=== PATIENT | female | born 1965 | race Caucasian/White ===

== ENCOUNTER 2019-12-17 19:10 | Inpatient (IN) | payer OTHER ==
[~2019-12-17] VITALS: Ht 162.6 cm; Wt 101.7 kg
[2019-12-17 19:16] VITALS: BP 115/66
[2019-12-17] MEDS ORDERED: TESSALON PERLE100 M1 PO (19:34)
[2019-12-17] MEDS ORDERED: PRINIVIL20 M1 PO (19:34)
[2019-12-17] MEDS ORDERED: PREDNISONE50 MG PO (19:50)
[2019-12-17 20:09] LABS: PO2 88.6 mmHg (80.0-100.0); pH 7.416 (7.360-7.450); sO2 96.9 % (92.0-98.0)
[2019-12-17 20:14] LABS: ABSOLUTE NEUTROPHILS 7.2 thou/uL (1.4-8.2); BASOPHILS 0.3 % (0.0-2.0); EOSINOPHILS 0.1 % (0.0-3.0); HEMATOCRIT 37.6 % (37.0-47.0); HEMOGLOBIN 12.8 gm/dL (12.0-15.0); LYMPHOCYTES 13.6 % (24.0-44.0); MCHC 34.1 g/dL (28.0-37.0); MCV 79.1 fL (80.0-100.0); MONOCYTES 9.3 % (1.0-8.0); PLATELET COUNT 228 thou/uL (150-400); POLYS 76.7 % (36.0-66.0); RBC 4.75 mil/uL (4.20-5.00); RDW 15.3 % (10.5-14.5); WBC 9.3 thou/uL (4.0-11.0)
[2019-12-17 20:18] LABS: ANION GAP 8 mmol/L (7-16); BUN 32 mg/dL (7-18); CALCIUM 8.5 mg/dL (8.5-10.1); CHLORIDE 95 mmol/L (98-107); CO2 29 mmol/L (21-32); CREATININE 2.1 mg/dL (0.6-1.0); GLUCOSE 156 mg/dL (74-106); POTASSIUM 3.5 mmol/L (3.5-5.1); SODIUM 132 mmol/L (136-145)
[2019-12-17 20:28] LABS: ALBUMIN 2.9 g/dL (3.4-5.0); DIRECT BILIRUBIN < 0.1 mg/dL (<0.1-0.2); SGOT 66 U/L (15-37); SGPT 44 U/L (30-65); TOTAL BILIRUBIN 0.4 mg/dL (0.2-1.0); TOTAL PROTEIN 8.1 g/dL (6.4-8.2); TROPONIN-I 0.06 ng/mL (<0.06)
[2019-12-17 22:19] VITALS: BP 115/65
[2019-12-18] VITALS (11 sets, daily range): BP systolic 100–127; BP diastolic 59–74
[2019-12-18 01:26] LABS: URINE BILIRUBIN NEGATIVE (Negative); URINE BLOOD NEGATIVE (Negative); URINE CLARITY CLEAR; URINE COLOR YELLOW; URINE GLUCOSE-RANDOM* NEGATIVE (Negative); URINE KETONES NEGATIVE (Negative); URINE LEUKOCYTES-REFLEX NEGATIVE (Negative); URINE NITRITE-REFLEX NEGATIVE (Negative); URINE PROTEIN (DIPSTICK) NEGATIVE (Negative); URINE SPECIFIC GRAVITY 1.015 (1.005-1.035); URINE UROBILINOGEN 0.2 E.U./dl (0.2-1.0)
[2019-12-18 01:47] LABS: HEMATOCRIT 36.5 % (37.0-47.0); HEMOGLOBIN 12.5 gm/dL (12.0-15.0); MCH 26.8 pg (26.0-34.0); MCHC 34.3 g/dL (28.0-37.0); MCV 78.2 fL (80.0-100.0); RBC 4.67 mil/uL (4.20-5.00); RDW 15.1 % (10.5-14.5); WBC 9.2 thou/uL (4.0-11.0)
[2019-12-18 01:56] LABS: CALCIUM 8.3 mg/dL (8.5-10.1); CREATININE 1.5 mg/dL (0.6-1.0); POTASSIUM 3.5 mmol/L (3.5-5.1)
--- NOTE | 2019-12-18 02:12 | NUR ---
ASSESSMENT: PT ARRIVED TO ROOM 237 AT 2300 COMING FROM ED. PT WAS ADMITTED WITH SOB AND POSITIVE COVID-19. PT IS ALERT AND ORIENT TIMES FOUR. UP WITH SBA TO BSC. C/O NON-CARDIAC CHEST PAIN THAT IS ASSOCIATED WITH COUGHING. PT HAS A LOW GRADE TEMP 99.1, RR 33 ON 9 LITERS OF HI-FLOW NC. DENIES NAUSEA. UA SENT, MRSA PCR SENT, PENDING RESULTS. PT WEARS BRIEFS R/T STRESS INCONT AND COUGHING. PT HAS NON-PRODUCTIVE GOOD COUGH. PT COUGHS WITH ACTIVITY AND REPOSITIONING. DOES RECOVER SLOWLY. PT IS PLEASANT, COOPERATIVE AND CALM. SR PER MONITOR. COVID RETEST PER SUPERVISOR PAPER TESTING Golden WRIGHT. WILL BE TAKEN THIS AM TO SEND TO LAB. SLOW PROGRESS TOWARDS DC GOALS, WILL CONTINUE TO MONITOR.
--- NOTE | 2019-12-18 07:29 | EKG ---
[facility] [place] [address] ELECTROCARDIOGRAM REPORT Name: IAN NOGUEIRA Room #: 237- ADM IN M.R.#: [id number] Admission: 12/17/19 Attend Phys: Iain Castro MD Discharge: Date of : 63 Report #: [id number] THIS REPORT FOR: cc: FAM - Family physician unknown FAM - Family physician unknown Sohan Huerta MD [facility] THIS REPORT FOR: //name// [facility] ED Test Date: 2019-12-17 Test Time: 20:01:44 Pat Name: IAN NOGUEIRA Department: Room: [facility] Gender: F Yard Associate: COMPA : 1965 Requested By: Flavia Curry Order Number: [id number] MD: Sohan Huerta Measurements Intervals [place] Rate: 88 P: 41 W[place]: 151 QRS: 14 QRSD: 93 T: 70 QT: 375 QTc: 454 Interpretive Statements Sinus rhythm Normal tracing No previous ECG available for comparison Electronically Signed On 12-18-2019 7:28:29 CDT by Sohan Huerta [email or web address] <ELECTRONICALLY SIGNED> By: Sohan Huerta MD, FAC [id number] 00 00 Sohan Huerta MD, [facility] /EPI
--- NOTE | 2019-12-18 10:20 | NUR ---
chart review. unable to visit with pt via phone call or in person rt covid r/o pending and high flow o2 per requiring. cm visited with her daughter arden [phone]. intro to cm and dcp. daughter reported " we live in house, with daughter, normally independent. went to [facility] on and was positive for covid, came home and started 14 days of quarantine. she drives, manage own medication. her primary dr is at [facility]. 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 note in chart o2 from 3-12L/nc. will cont following as needed for dc needs.
--- NOTE | 2019-12-18 10:30 | NUR ---
DAUGHTER, MYRIAM INQUIRED REGARDING PT STATUS. UPDATED IN DETAIL. PT IN CHAIR WITH SAO2 IN UPPER 90'S, RR-18-22, TAKING DEEP BREATHS AND COUGHING EVERY 15 MINUTES. DRY NONPRODUCTIVE COUGH. RESP EVEN AND UNLABORED. SLIGHT PROGRESS. DR. TAVERAS PRESENT THIS AM.
--- NOTE | 2019-12-18 11:10 | NUR ---
LAB CALLED WITH COVID 19 POSITIVE RESULTS. PT TO REMAIN IN ENHANCED PRECAUTIONS, STILL EXHIBITING SYMPTOMS. MAYRA BROOKS RN INFECTION CONTROL NOTIFIED.
--- NOTE | 2019-12-18 17:00 | NUR ---
DISCUSSED BENEFITS OF "PRONING" WITH PT. AGREEDED AND WITH MINIMAL ASSISTANCE PLACED IN PRONE POSITION AT 1700. PLACED MEPELIX ON CHEEK FOR PRESSURE SORE PREVENTION. WELL TOLERATED.
--- NOTE | 2019-12-18 17:01 | NUR ---
CORRECTION 1700 NOTE: PT PLACED IN PRONE POSITION AT "1500".
[2019-12-19] VITALS (16 sets, daily range): BP systolic 92–129; BP diastolic 53–72
[2019-12-19 02:06] LABS: GLYCOHEMOGLOBIN (HGB A1C) 6.5 % (4.8-5.6)
[2019-12-19 05:35] LABS: ABSOLUTE NEUTROPHILS 4.7 thou/uL (1.4-8.2); BASOPHILS 0.2 % (0.0-2.0); HEMATOCRIT 32.6 % (37.0-47.0); HEMOGLOBIN 11.1 gm/dL (12.0-15.0); LYMPHOCYTES 15.8 % (24.0-44.0); MCH 26.9 pg (26.0-34.0); MCHC 34.1 g/dL (28.0-37.0); MCV 78.9 fL (80.0-100.0); PLATELET COUNT 234 thou/uL (150-400); RBC 4.13 mil/uL (4.20-5.00); RDW 15.2 % (10.5-14.5); WBC 6.4 thou/uL (4.0-11.0)
[2019-12-19 05:48] LABS: PROTIME 10.4 Seconds (9.3-11.4)
[2019-12-19 05:53] LABS: FIBRINOGEN 469.2 mg/dL (210-360)
[2019-12-19 06:07] LABS: ALBUMIN 2.3 g/dL (3.4-5.0); CALCIUM 8.1 mg/dL (8.5-10.1); POTASSIUM 3.6 mmol/L (3.5-5.1); TOTAL BILIRUBIN 0.3 mg/dL (0.2-1.0)
--- NOTE | 2019-12-19 07:44 | NUR ---
Progressing slowly toward goals. Pt not SOA at rest, but does drop O2 sat into mid 80's with any activity. O2 titrated from 9 L HFC to 10 L HFC this a.m. when she got up to sit in chair at 0600. Sat was 88% but now 93-95%. Pt c/o of non-cardiac chest pain x1. Fentanyl given with adequate relief obtained. Pt able to sleep well and did not drop O2 sat. Monitor sinus valdemar, rate 43-58, when sound asleep; sinus rhythm 60-80 when awake. No fever overnight, temp max 98.7 F orally.
--- NOTE | 2019-12-19 10:50 | NUR ---
returned call to Renate, daughter. updated on pt status. per pt request informed Renate that her mother's cell phone is malfunctioning. Renate stated she would machine operator hop picker the cell phone and bring a another phone for her mother. pt in chair, slowly consuming breakfast.
--- NOTE | 2019-12-19 11:40 | NUR ---
discussed during los, covid positive. no plan dc today.
--- NOTE | 2019-12-19 14:22 | NUR ---
VASCULAR ACCESS CONSULTED FOR PICC PLACEMENT. PT'S LABS,MEDS,HISTORY,ORDER AND CONSENT VERIFIED. DISCUSSED BENEFITS AND RISK OF PICC, INCREASED INCIDENCE OF BL CLOT WITH + COVID. VERBALIZED UNDERSTANDING. VICKIE BRACHIAL WAS WIDELY PATENT WITH USG. 4FR DL POWER PICC TRIMMED TO 38CM INSERTED TO 1CM EXTERNAL. PT TOLERATED WELL. STST CXR ORDERED
--- NOTE | 2019-12-19 15:03 | NUR ---
CXR CONFIRMED PICC IN SVC. PICC RELEASED FOR IMMEDIATE USE PER PROTOCOL TO CHARLOTTE GARDINER
--- NOTE | 2019-12-19 16:16 | NUR ---
SW received call from WEDDING DECORATOR to speak with pt regarding financial assistance and discharge plan. SW spoke with pt via phone in her room ([phone]). Pt is in Enhanced Isolation due to being positive for COVID-19. Pt on O2. Pt states she has been staying with her dtr, Renate. Pt is unsure of her long-term living arrangements, as she was supposed to move out of her current location as of 11/26. Pt states she has stayed at an Extended Stay recently, but has been staying with her dtr while being in quarantine. Pt requested SW contact her dtr, to notify them that the cell phones and chargers that family brought in for pt, do not work. AUDRA spoke with pt's dtr, Renate. Provided number into pt's room. Renate states pt is able to return to her home at time of discharge, and pt will be in quarantine at their house. AUDRA contacted Alissa with [employer] to assist with Medicaid application. Unsure of pt's discharge needs at this time. AUDRA is following to assist as needed with discharge planning.
[2019-12-19] MEDS ORDERED: CARVEDILOL25 MG PO (17:42)
[2019-12-19] MEDS ORDERED: GABAPENTIN800 M1 PO (17:43)
[2019-12-19] MEDS ORDERED: ELIQUIS5 MG PO (17:44)
[2019-12-19] MEDS ORDERED: FUROSEMIDE 40 M40 MG PO (17:45)
[2019-12-19] MEDS ORDERED: LIPITOR80 MG PO (17:46)
[2019-12-19] MEDS ORDERED: ZESTRIL40 MG PO (17:48)
[2019-12-19] MEDS ORDERED: GLIPIZIDE 10 MG10 MG PO (17:51)
[2019-12-19] MEDS ORDERED: LIDOCAINE 5% OINT TOP (17:54)
[2019-12-19] MEDS ORDERED: LIDOCAINE 5% TOP (18:00)
--- NOTE | 2019-12-19 20:15 | NUR ---
SLOWLY INFUSING REMDESIVIR RELATED TO L AC PERIPHERAL IV SITE. OBTAINED ORDER FROM DR. YEUNG FOR PICC PLACEMENT ABOUT 1030. CONSENT SIGNED. ABDIFATAH VO IV TEAM PLACED CENTRAL LINE, THEN PLACEMENT CONFIRMED PER CHEST XRAY, RN NOTIFIED. ANTIBIOTICS DELAYED. KINKED PERIPHERAL IV DC'D. PT HAVING CONCERNS- THE CELLS PHONES CONTINUE TO MALFUNCTION/NOT CHARGE. HOSPITAL PHONE IN ROOM FOR PT USE. PT HAS SEVERAL CONCERNS REGARDING FINANCES, IN PROCESS OF RELOCATING, CALLING HER WORK DAILY TO REPORT HERSELF SICK, WANTING TO SPEAK WITH FAMILY. TETE, CASE MANAGEMENT NOTIFIED AND SPOKE WITH PT PER HOSPITAL PHONE. PT UP IN CHAIR TWICE TODAY, EACH TIME FOR SEVERAL HOURS. AMBULATES TO TOILET WITH STANDBY ASSIST, THEN BACK TO BED WHEN CENTRAL LINE PLACED. AMBULATED TO TOILET, THEN BACK TO BED AT SHIFT CHANGE. SHE PREFERRED TO LAY PRONE. ABDIFATAH RAMOS AND I ASSISTED PT TO PRONE POSITION. WELL TOLERATED. FLAT EFFECT, STATES THAT SHE IS BREATHING BETTER TODAY.
[2019-12-20] VITALS (24 sets, daily range): BP systolic 89–138; BP diastolic 53–75
[2019-12-20 01:06] LABS: GLYCOHEMOGLOBIN (HGB A1C) 6.8 % (4.8-5.6)
--- NOTE | 2019-12-20 05:34 | NUR ---
DR. YEUNG CALLED AT 0500. PT DESAT WHEN TURNED AND CLEANED. PT UP TO 15L HIGH FLOW. PT STILL DESATING AND PLACED ON NON REBREATHER. ORDER FOR STAT CHEST XRAY GIVEN.
--- NOTE | 2019-12-20 08:55 | NUR ---
Assess due to high BMI 40.8, class III obesity. Admit +covid 19, pneumonia, hypoxia. Able to take po, but eating <50% meals past several days. On dexamethasone, BG 131-177 and A1C 6.8. No hx diabetes. Keep on regular diet for now since not eating much and will send glucerna bid until intake improves. Otherwise low nutrition risk
--- NOTE | 2019-12-20 11:15 | NUR ---
RN assumed care at 0700. At 0830, RN performed assessment, see chart for further details. VSS. PT denied pain. Is A&O x4. PT requested to self prone. Rn assisted PT with position change by guiding wires. PT has sufficient strength to turn on her own. PT had an incontinent bowel episode and was promptly cleaned up by RN. PT's oxgyen saturation is currently 100% and remains in prone position, appears to tolerate position well. High fall risk precautions in place. RN will continue to monitor.
[2019-12-20 18:06] LABS: HIV ANTIBODY Non Reactive (Non Reactive)
[2019-12-21] VITALS (60 sets, daily range): BP systolic 85–151; BP diastolic 42–90
--- NOTE | 2019-12-21 04:52 | NUR ---
Patient not making progress towards outcome goals. Extreme shortness of breath and desaturates with minimal activity. On NRBM and Hi flow cannula, sats 95-98%. Tried prone/side position. Sats gradually increases back up to upper 90's. Poor appetite. Completed transfusion of convalescent plasma without untowards reactions.
--- NOTE | 2019-12-21 06:06 | NUR ---
Dr Lozada appraised of patients progress. Anticipate possible intubation, patient educated. On BIPAP now sats 96%.
[2019-12-21 09:59] LABS: BE(vivo) -4.8 mmol/L (-2 to +3); HCO3 23.4 mmol/L (22.0-26.0); PCO2 55.9 mmHg (35.0-45.0); sO2 66.7 % (92.0-98.0)
[2019-12-21 10:01] LABS: PO2 40.9 mmHg (80.0-100.0); pH 7.239 (7.360-7.450)
--- NOTE | 2019-12-21 12:15 | NUR ---
NURSE SPOKE WITH PATIENT'S DAUGHTER KENNEY VIA PHONE REGARDING PATIENT STATUS UPDATE. INFORMED DAUGHTER THAT PATIENT WAS ADMITTED ON 12/16 WITH COVID POSITIVE PNA; SHE STRUGGLED WITH KEEPING HER OXYGEN LEVELS UP OVERNIGHT; SHE CONSENTED TO BE INTUBATED THIS MORNING. ASSURED DAUGHTER THAT PATIENT IS SEDATED AND COMFORTABLE AT THIS TIME; THAT HER VITALS AND OXYGEN LEVELS HAVE IMPROVED WHILE SHE HAS BEEN INTUBATED. PATIENT'S DAUGHTER DENIED ANY FURTHER QUESTIONS AT THIS TIME BUT WOULD LIKE CALLED WITH ANY UPDATES OR STATUS CHANGES.
--- NOTE | 2019-12-21 13:30 | NUR ---
DAUGHTER KENNEY CALLED AND UPDATED TO HER MOTHER'S CONDITION, INFORMED THAT THE PATIENT WANTED TO BE INTUBATED AND WAS ALERT AND ORIENTED AND ABLE TO GIVE CONSENT THIS AM. PATIENT WAS ONLY ABLE TO SPEAK IN SHORT 2 WORD SENTENCES PRIOR TO INTUBATION. DAUGHTER INFOMED THAT HER MOTHER WAS BEING KEPT CONFORTABLE ON MEDICATIONS FOR SEDATION AND PAIN, AND THAT SHE WAS REQUIRING A LARGE AMOUNT OF O2 FOR VENTILATION. DAUGHTER REQUESTED THAT WE INFORM HER BEFORE ANY PROCEDURES IF POSSIBLE.
[2019-12-21 15:34] LABS: HEMATOCRIT 37.1 % (37.0-47.0); HEMOGLOBIN 12.3 gm/dL (12.0-15.0); MCHC 33.1 g/dL (28.0-37.0); MCV 81.6 fL (80.0-100.0); RBC 4.54 mil/uL (4.20-5.00); RDW 15.7 % (10.5-14.5); WBC 16.7 thou/uL (4.0-11.0)
[2019-12-21 17:09] LABS: HEMATOCRIT 34.9 % (37.0-47.0); MCH 27.5 pg (26.0-34.0); MCHC 34.3 g/dL (28.0-37.0); MCV 80.2 fL (80.0-100.0); RBC 4.36 mil/uL (4.20-5.00); RDW 15.6 % (10.5-14.5); WBC 21.3 thou/uL (4.0-11.0)
[2019-12-21 17:18] LABS: INR 1.4
--- NOTE | 2019-12-21 17:28 | NUR ---
VASCULAR ACCESS CONSULTED FOR CENTRAL LINE. USING USG RIJ WAS NONCOMPRESSABLE, LEFT SIDE HAD SHADOWING IN THE IJ WITH ONLY PARTIAL COMPRESSABLITY. KELLY GARDINER NOTIFIED TO CALL DR ANDREW REGARDING FINDINGS AND CENTRAL LINE HELD.
--- NOTE | 2019-12-21 17:38 | NUR ---
CALLED DAUGHTER KENNEY TO CALL IN TO HER MOTHER'S CELL PHONE.
--- NOTE | 2019-12-21 18:17 | NUR ---
PATIENT CONSENTED TO BE INTUBATED THIS MORNING DUE TO CONTINUED HYPOXIA/SOA. INTUBATED AT 0925. RESTRAINTS PLACED 0925. OG TUBE PLACED. SEDATED ON PROPOFOL AND FENTANYL GTTS. ACCU CHECKS CHANGED TO Q6H. BG LEVELS THIS SHIFT 224 AND 216; SSI GIVEN PER ORDER. SOFT BPS; LEVOPHED GTT STARTED. NS GTT RATE DECREASED. IV ABX CONTINUED. ONE TIME LASIX GIVEN. BUTLER CONTINUED; 1300 ML OUT THIS SHIFT. BM WITH BLOOD-TINGE; INCONTINENCE. PATIENT DOES NOT TOLERATE POSITION CHANGES; DE-SATS TO 60s. TOLERATES HIGH ESTEBAN'S POSITION WITH OXYGEN SATS MAINTAINED BETWEEN 89-96%. DOUBLE PICC CONTINUED IN RIGHT ARM. ATTEMPTED PLACEMENT OF TRIPLE CENTRAL LINE; UNABLE TO DUE TO THROMBOSIS PRESENT IN BILATERAL JUGULAR VEINS AND RIGHT SUBCLAVIAN VEIN. US OF NECK AND BLES THIS SHIFT. ECHO ORDERED. DIETITIAN CONSULT FOR TUBE FEEDINGS ORDERED. LOVENOX DISCONTINUED; HEPARIN GTT STARTED. FAMILY UPDATED THROUGHOUT SHIFT BY NURSE AND PHYSICIAN. SR ON THE MONITOR; HR 70-90S.
--- NOTE | 2019-12-21 18:50 | NUR ---
Call rec'd from Dtr Renate. She states that she did receive an update earlier today but had not gotten an update for almost 2 days. During this time the pt was intubated. Renate expressed her grief at not being able to see her mom and concerned about her recovery. Emotional support provided. Renate also asked about the convolecent plasma stating that her mother did not want any blood products. ID note indicates discussion with pt and pt consent. Dtr updated and feels better knowing her mom was in agreement with this treatment. Dtr notes she and her siblings are looking to see if the pt has a dpoa document in place. She is available to help with information needed for pt to apply for [place] medicaid. Left message for the [employer] liason. Cm role reintroduced. Dc planning needs are uncertain at this time.
--- NOTE | 2019-12-21 20:00 | NUR ---
DAUGHTER UPDATED TO PLAN TO DO A CT SCAN TO R/O PULM EMBOLISM IF HER KIDNEY FUNCTION TEST WERE WITHIN NORMAL RANGE. EDUCATED ON THE DISEASE PROCESS OF TINY CLOTS FORMING AND CAUSING LARGER CLOTS AND THAT WE HAD STARTED HEPARIN TO PREVENT CLOT FORMATION. DAUGHTER VERBALIZED UNDERERSTANDING.
[2019-12-22] VITALS (86 sets, daily range): BP systolic 80–150; BP diastolic 51–91
[2019-12-22 04:59] LABS: HCO3 23.1 mmol/L (22.0-26.0); PCO2 36.6 mmHg (35.0-45.0); pH 7.418 (7.360-7.450); sO2 87.6 % (92.0-98.0)
--- NOTE | 2019-12-22 05:38 | NUR ---
2027: SEDATION VACATION FROM 100MCG OF FENTANYL AND 80MCG OF PROPOFOL. LASTED 2 MINUTES, PT FOLLOWS SOME COMMANDS, WILL ONLY WIGGLE TOES. OPENS EYES TO VOICE. 2214: TRANSPORTED PT TO RADIOLOGY FOR CTA 2247: ON OUR WAY BACK FROM RADIOLOGY, VENT WAS ALMOST OUT OF BATTERY, SO PT DESATURATED TO 44% SPO2. RT BEGAN TO MANUALLY BAG THE PT, O2 CAME UP TO 80s AT 2257; PT BACK IN ICU ROOM AND CONNECTED VENT BACK TO POWER AND TO PT. THEN PT'S 02 THEN UP TO 90s AT 2311. 0020; RN SPOKE TO PT'S DAUGHTER YAMINI ROSE; UPDATED HER ON PT STATUS, VITAL SIGNS AT THAT TIME AND RESULTS OF CTA WHICH WAS NEGATIVE. RN ALSO INFORMED DTR ABOUT A TO-DO LIST FOUNF IN PT ROOM THAT THE PT WROTE DOWN BEFORE GETTING INTUBATED. PT DTR SAID SHE WILL CALL BACK THIS AM TO GET DETAILS OF WHAT THE LIST ENTAILS. 0200; PT'S PROPOFOL TURNED DOWN TO 30MCG AND FENTANYL DOWN TO 50MCG. PT WAS ABLE TO NOD YES AND NO TO SIMPLE QUESTIONS, FOLLOW COMMANDS AND MODERATELY SQUEEZE RN'S HAND AND PUSH ON MY HAND. SMALL AMOUNT OF VAGINAL SPOTTING/BLEEDING NOTED PT IS STABLE NOW ON THE VENT. WILL CONTINUE TO CLOSELY MONITOR.
[2019-12-22 09:03] LABS: ALBUMIN 2.2 g/dL (3.4-5.0); CALCIUM 7.3 mg/dL (8.5-10.1); CREATININE 0.8 mg/dL (0.6-1.0); FIBRINOGEN 277.3 mg/dL (210-360); INR 1.2; MAGNESIUM 2.4 mg/dL (1.8-2.4); POTASSIUM 3.5 mmol/L (3.5-5.1); PROTIME 12.2 Seconds (9.3-11.4); TOTAL BILIRUBIN 1.1 mg/dL (0.2-1.0)
[2019-12-22 09:32] LABS: APTT 26.1 Seconds (24.5-32.8)
[2019-12-22 09:55] LABS: BASOPHILS 0.2 % (0.0-2.0); HEMATOCRIT 32.9 % (37.0-47.0); HEMOGLOBIN 11.1 gm/dL (12.0-15.0); LYMPHOCYTES 11.5 % (24.0-44.0); MCH 26.8 pg (26.0-34.0); MCHC 33.7 g/dL (28.0-37.0); MCV 79.7 fL (80.0-100.0); MONOCYTES 4.9 % (1.0-8.0); PLATELET COUNT 152 thou/uL (150-400); POLYS 83.4 % (36.0-66.0); RBC 4.13 mil/uL (4.20-5.00); WBC 17.9 thou/uL (4.0-11.0)
--- NOTE | 2019-12-22 10:11 | NUR ---
Nutrition: Tube feeds to start. REC Vital HP to reach 45 mL/hr with current propofol rate.
[2019-12-22] MEDS ORDERED: NO CURRENT MEDS (10:12)
[2019-12-22 10:53] LABS: D-DIMER ND ug/mLFEU (0.19-0.50)
--- NOTE | 2019-12-22 11:33 | NUR ---
Visited with daughters Renate Grider and Lisa Viramontes along with Dr. Mathews on 12/21/19 to discuss questions that they had about patient's care. Dr. Mathews explained to them the currect course of action including the use of convalescent plasma. He stated to them that if they have any other questions, please contact him and let him know. I then spoke with them about who in family will be the personal lines insurance advisor for staff to share information with, gain consents, etc. Renate stated that she would be that person. Gave a cell phone of [phone]. Shared information with nursing staff and Twisting Machine Operator. Later followed up with Renate about the possibility of I-Pad access for video messaging. Left VN and asked for an updated number to utilize this technology option.
--- NOTE | 2019-12-22 14:04 | EKG ---
[facility] [place] [address] ELECTROCARDIOGRAM REPORT Name: IAN NOGUEIRA Room #: 237- ADM IN M.R.#: [id number] Admission: 12/17/19 Attend Phys: Iain Castro MD Discharge: Date of : 63 Report #: [id number] THIS REPORT FOR: cc: FAM - Family physician unknown FAM - Family physician unknown Vickey Smiley MD ~ THIS REPORT FOR: //name// [facility] Test Date: 2019-12-21 Test Time: 20:03:49 Pat Name: IAN NOGUEIRA Department: Room: [facility] Gender: F Residue Furnace Operator: Sabine THOMPSON : 1965 Requested By: Buster Mathews Order Number: [id number] MD: Vickey Smiley Measurements Intervals [place] Rate: 91 P: 39 TX: 161 QRS: 29 QRSD: 91 T: 44 QT: 389 QTc: 479 Interpretive Statements Sinus rhythm Nonspecific T abnormalities, anterior leads Baseline wander in lead(s) II,V1 Compared to ECG 12/17/2019 20:01:44 T-wave abnormality now present Electronically Signed On 12-22-2019 14:04:20 CDT by Vickey Smiley [email or web address] <ELECTRONICALLY SIGNED> By: Vickey Smiley MD 12/22/19 1404 02 02 Vickey Smiley MD /EPI
--- NOTE | 2019-12-22 15:30 | NUR ---
1515- Patient was pronated and will be in this position for 6 hours, per Dr. Mathews. Three RNs with RT used sheet exchange method to smoothly pronate patient. Patient appeared to tolerate pronation transfer well. 1530- Patient moved to 238 with all belongings, 2 cells phones 2 cell phone chargers (1 pink and 1 black), red glasses, red shirt, randle pants, and white socks. Nurse to continue to monitor patient status.
--- NOTE | 2019-12-22 15:50 | NUR ---
4707- Nurse talked with Renate and updated her on plan of care and current status of her mom. Her questions were answered. The list of information that the patient had written out was verbally given to Renate. Renate expressed that she would like to facetime her mom. The number to call Renate on for facetime is [phone]. Renate is hoping to get to interact with her tonight during the sedation vacation. Daysmift RN will pass this on in report. Nurse talked with Renate and expressed that she will be prone position until around 2115 tonight. Then nurse could perform the sedation vacation. Nurse also let Renate know about the room change and the reasonings for this. No further questions were asked and the phone call was ended.
--- NOTE | 2019-12-22 16:26 | NUR ---
Pt remains intubated in the ICU. Case discussed with the care team and the [employer] liason. [place] medicaid has now changed rules for covid pt applications;however the pt tested postive at [facility] more than 12 days ago prior to the new rule change. [employer] will reveiw the rules and determine if they can try to take an application once the pt is able to participate. [employer] to check with [employer] as well to see if they have submitted already as the pt has been at [facility] ICU. The system does not show that an larry has been submitted. Will follow.
--- NOTE | 2019-12-22 18:24 | NUR ---
5698- Nurse talked with Renate who expressed the previous number for the [employer] is not working. She wants us to call with [employer] on a different number. This number is [phone]. This will be informed to next oncoming shift.
--- NOTE | 2019-12-22 18:25 | NUR ---
Patient maintaining status at this time. She is prone. Requiring levophed for blood pressure support. Heparin gtt protocol followed.
[2019-12-23] VITALS (48 sets, daily range): BP systolic 90–139; BP diastolic 50–89
[2019-12-23 05:43] LABS: HEMATOCRIT 31.2 % (37.0-47.0); HEMOGLOBIN 10.4 gm/dL (12.0-15.0); MCH 26.7 pg (26.0-34.0); MCHC 33.4 g/dL (28.0-37.0); MCV 79.8 fL (80.0-100.0); RBC 3.91 mil/uL (4.20-5.00); RDW 15.4 % (10.5-14.5)
[2019-12-23 05:57] LABS: CALCIUM 7.7 mg/dL (8.5-10.1); CREATININE 0.8 mg/dL (0.6-1.0); MAGNESIUM 2.8 mg/dL (1.8-2.4); POTASSIUM 3.2 mmol/L (3.5-5.1)
--- NOTE | 2019-12-23 07:28 | NUR ---
PATIENT ON LIGHT SEDATION. ABLE TO OPEN EYES AND TRACK DURING SEDATION VACATION. PATIENT FACETIMED WITH FAMILLY THROUGHOUT THE NIGHT [phone], QUESTIONS ANSWERED. DAUGHTER (VIVIANE) WOULD LIKE TO BE CALLED BY SENIOR PRINCIPAL ARCHITECT TO DISCUSSED PLAN OF CARE. DAUGHTER EXPRESSED CONCERNS ABOUT PATIENT BEING ON VENTILATOR AND WHAT ARE HER CHANCES IF IT IS REMOVED. ON 100% FIO2, PATIENT PRONED FROM [id number], POST CHEST X-RAY SHOWED SIGNIFICANT IMPROVEMENT. LEVOFED WEANED TO 2MCG, MAP REMAINS ABOVE 60. BUTLER PATENT WITH DARK YELLOW URINE. POTASSIUM REPACED THIS MORNING. TUBE FEEDING STARTED THROUUGHOUT THE NIGHT, PATIENT TOLERATING WELL. RESIDUAL CHECK LESS THAN 50 ML. SPOKE WITH DAUGHTER THIS MORNING AT 0700 AND GAVE UPDATE OF PATIENT'S NIGHT. PATIENT PROGRESSING TOWARDS GOALS, NO SIGN OF ACUTE DISTRESS NOTED AT THIS TIME. WILL CONTINUE TO MONITOR.
[2019-12-23 11:46] LABS: BE(vivo) 2.5 mmol/L (-2 to +3); HCO3 28.4 mmol/L (22.0-26.0); PO2 103.5 mmHg (80.0-100.0); pH 7.372 (7.360-7.450); sO2 97.5 % (92.0-98.0)
--- NOTE | 2019-12-23 18:20 | NUR ---
FIO2 DOWN TO 80%. PRONED AT 1600. FACE TIME WITH FAMILY AT 1400 FOR 20 MINUTES. SEDATION VACATION DURING FACETIME, PT AWAKE, MOVING EXTREMITIES. DID NOT FOLLOW COMMANDS. LEVOPHED OFF TODAY AT 1100. VSS..
[2019-12-24] VITALS (27 sets, daily range): BP systolic 88–151; BP diastolic 42–87
[2019-12-24 05:39] LABS: HEMATOCRIT 29.2 % (37.0-47.0); HEMOGLOBIN 9.9 gm/dL (12.0-15.0); MCH 27.1 pg (26.0-34.0); MCV 79.6 fL (80.0-100.0); RBC 3.67 mil/uL (4.20-5.00); RDW 15.7 % (10.5-14.5); WBC 14.4 thou/uL (4.0-11.0)
[2019-12-24 05:56] LABS: CREATININE 0.9 mg/dL (0.6-1.0); MAGNESIUM 2.7 mg/dL (1.8-2.4); POTASSIUM 3.6 mmol/L (3.5-5.1)
--- NOTE | 2019-12-24 06:00 | NUR ---
REMAINS INTUBATED AND SEDATED WITH PROPOFOL AND FENTANYL GTTS. FIO2 REMAINS 80 % LUNGS COARSE BILAT. BATHED. 1600 CC UO THIS SHIFT. PT IN PRONE POSITION FOR 6 HRS LAST EVENING SINUS RHYTHM. PROGRESSING TOWARD GOALS. WILL CONT TO MONITOR
[2019-12-24 06:08] LABS: D-DIMER 10.3 ug/mLFEU (0.19-0.50)
[2019-12-24 09:06] LABS: APTT 71.1 Seconds (24.5-32.8)
[2019-12-24 10:35] LABS: BE(vivo) 5.8 mmol/L (-2 to +3); HCO3 32.3 mmol/L (22.0-26.0); PCO2 58.3 mmHg (35.0-45.0); PO2 93.3 mmHg (80.0-100.0); pH 7.362 (7.360-7.450); sO2 96.7 % (92.0-98.0)
--- NOTE | 2019-12-24 16:19 | NUR ---
NO CHANGES IN VENT SETTINGS TODAY. MINIMAL SECRETIONS PER ETT. PRONED AT 1530. SPOKE WITH DAUGHTER ILIANA AT 0930 AND UPDATED HER ON PT CONDITION AND PLAN OF CARE. ADEQUATE URINE OUTPUT. AFEBRILE, BP STABLE OFF OF LEVOPHED.
[2019-12-25] VITALS (25 sets, daily range): BP systolic 91–122; BP diastolic 48–72
[2019-12-25 05:40] LABS: HEMATOCRIT 26.9 % (37.0-47.0); HEMOGLOBIN 9.1 gm/dL (12.0-15.0); MCH 26.8 pg (26.0-34.0); MCHC 33.7 g/dL (28.0-37.0); MCV 79.7 fL (80.0-100.0); RBC 3.37 mil/uL (4.20-5.00); RDW 15.8 % (10.5-14.5); WBC 12.3 thou/uL (4.0-11.0)
[2019-12-25 05:57] LABS: CALCIUM 8.2 mg/dL (8.5-10.1); CREATININE 0.9 mg/dL (0.6-1.0); MAGNESIUM 2.7 mg/dL (1.8-2.4); POTASSIUM 3.9 mmol/L (3.5-5.1)
--- NOTE | 2019-12-25 15:58 | NUR ---
SW reviewed chart and spoke with attending physician. Pt remains intubated and sedated in ICU. Pt is in Enhanced Isolation due to COVID-19. TAXATION AGENT consulted today. [employer] to rescreen pt to determine if she will qualify for [place]-Medicaid. AUDRA is following to assist as needed with discharge planning.
--- NOTE | 2019-12-25 18:36 | NUR ---
FIO2 DOWN TO .50%. LARGE AMOUNT OF VAGINAL BLEEDING NOTED IN AM. MD NOTIFIED AND CT OF ABDOMEN/PELVIS ORDERED. ALLIGATOR HUNTER CONSULT AND TRANSVAGINAL U/S COMPLETED. LARGE CERVICAL MASS NOTED ON CT. DR. ANDREW SPOKE WITH DAUGHTER ABOUT PT CONDITION. HEPARIN DRIP HELD DUE TO BLEEDING. THIS NURSE SPOKE WITH DAUGHTER AND UPDATED HER ON CONDITION AND PLAN OF CARE. DAUGHTER WOULD LIKE TO HAVE VIDEO CALL TOMORROW AT 1400 WITH MOTHER.
[2019-12-26] VITALS (24 sets, daily range): BP systolic 96–169; BP diastolic 52–91
[2019-12-26 09:47] LABS: CALCIUM 7.3 mg/dL (8.5-10.1); CREATININE 0.6 mg/dL (0.6-1.0); POTASSIUM 3.9 mmol/L (3.5-5.1)
--- NOTE | 2019-12-26 09:52 | NUR ---
Patient incontient of stool. loose brown. Fecal management system inserted. Light pinkish, red vag drainage noted.
--- NOTE | 2019-12-26 14:05 | NUR ---
VIDEO CONFERENCE WITH PATIENT'S FAMILY AND PATIENT. VIA DAUGHTER, KENNEY'S PHONE. VIDEO CONFERENCE WITH MULTIPLE FAMILY MEMBERS FROM 1348 TO 1401. DAUGHTER KENNEY UPDATED TO THE PATIENT'S STATUS THAT WE HAD TURNED O2 DOWN AND SHE WAS TOLERATING IT AND NOW HAVING STOOLS.
--- NOTE | 2019-12-26 19:29 | NUR ---
PATIENT PROGRESSING SLOWLY SHE IS TOLERATING NEW VENT SETTINGS OF FIO2 OF 40% AND PEEP OF 10CM. RESP RATE IN THE 20'S AND O2 SAT 94 TO 96%. TOLERATING TUBE FEEDING. DR ANDREW UPDATED AT 1900. URINE OUTPUT OF 160 ML MYRIAM COLORED URINE AFTER LASIX. MONIOR SR TO [facility].
[2019-12-27] VITALS (24 sets, daily range): BP systolic 92–154; BP diastolic 50–81
--- NOTE | 2019-12-27 02:35 | NUR ---
ASSUMED CARE OF PATIENT AT 1900. LARGE CLOTS FROM VAGINAL AREA CLEANED SEVERAL TIMES. BUTLER SEEMS TO BE LEAKING, ADEQUATE FLUID IN BALLOON. DAUGHTER CALLED AT 0030. UPDATE GIVEN. VERBALIZED UNDERSTANDING. NOT PROGRESSING TOWARDS POC EVIDENCED BY CONTINUE BLEEDING AND CONTINUED NEED FOR VENTILATOR. WILL CONTINUE TO MONITOR.
[2019-12-27 06:19] LABS: HEMATOCRIT 28.3 % (37.0-47.0); HEMOGLOBIN 9.6 gm/dL (12.0-15.0); MCH 27.3 pg (26.0-34.0); MCHC 33.8 g/dL (28.0-37.0); MCV 80.8 fL (80.0-100.0); RBC 3.51 mil/uL (4.20-5.00); RDW 15.4 % (10.5-14.5); WBC 18.4 thou/uL (4.0-11.0)
[2019-12-27 06:38] LABS: CALCIUM 8.4 mg/dL (8.5-10.1); CREATININE 0.7 mg/dL (0.6-1.0); POTASSIUM 3.8 mmol/L (3.5-5.1)
--- NOTE | 2019-12-27 20:08 | NUR ---
PT REMAINS INTUBATED; PEEP DECREASED FROM 10 TO 6, TOLERATED FAIRLY WELL. REMAINS ON PROPOFOL AND FENTANYL GTT, FOLLOWING SIMPLE COMMANDS.
[2019-12-28] VITALS (24 sets, daily range): BP systolic 94–123; BP diastolic 47–70
[2019-12-28 04:48] LABS: HEMATOCRIT 26.5 % (37.0-47.0); HEMOGLOBIN 8.8 gm/dL (12.0-15.0); MCHC 33.3 g/dL (28.0-37.0); MCV 81.2 fL (80.0-100.0); RBC 3.26 mil/uL (4.20-5.00); RDW 15.4 % (10.5-14.5); WBC 17.2 thou/uL (4.0-11.0)
[2019-12-28 04:59] LABS: CALCIUM 8.4 mg/dL (8.5-10.1); CREATININE 0.7 mg/dL (0.6-1.0); POTASSIUM 3.6 mmol/L (3.5-5.1)
--- NOTE | 2019-12-28 05:02 | NUR ---
CARE ASSUMED AT 1900. PT SEDATED. ABLE TO OPEN EYES BUT DOES NO FOLLOW COMMANDS. SR ON THE MONITOR. PT HAS A PERIODIC COUGH THAT MAKES HER DESAT INTO LOWER 80s BUT DOES NOT SUSTAIN. FIO2 TITRATED TO 45 FROM 40. BED ON ROTATION, WITH PERIODIC REPOSITIONING. MINIMAL VAGINAL BLEEDING STILL NOTED. RECTAL TUBE AND CATHETER INTACT. SOFT BPs OVERNIGHT , OTHER MAP STABLE > 60. PT DOES NOT APPEAR TO BE IN ANY DISTRESS AT THE MOMENT. MILD FEVER OF 99.9, TYLENOL GIVEN. DAUGHTER UPDATED ABOUT PT CONDITION. TUBE FEEDING AT 45, WITH RESIDUAL OF 35. WILL CONTINUE TO MONITOR.
--- NOTE | 2019-12-28 12:15 | NUR ---
discussed during los, remains on vent, going to possible start wean trials, coivd positive. spoke with daughter ardenmayo active listing and support during visit " we appreciate the video call. we still would like doctors to updates us on who she is doing getting her off vent. keeps up updated on home pending medicaid is going and i think her insurance was active with [employer] on 12/27/2019. not received anything in mail or phone call from [employer]. thank you so much for checking when us since cant all be up there with her"/daughter arden [phone]. passed on information to bedside nurse. will cont following as needed for dc needs. no anticipated dc over the weekend.
[2019-12-28 13:45] LABS: T-SPOT.TB Negative
--- NOTE | 2019-12-28 19:15 | NUR ---
Pt sedated with Propofol/Fentanyl while on the ventilator. Pt has limited movement of arms but does not focus eyes on RN at bedside. Rhythm stable. Maintained on ventilator today with occasional suctioning required. Tolerating tube feedings. Small amt of vaginal bleeding. No contact with family. Dr Castro stated he would be calling pt's daughter to give status report. Report given to RN assuming care.
[2019-12-29] VITALS (19 sets, daily range): BP systolic 90–165; BP diastolic 50–132
[2019-12-29 06:20] LABS: CALCIUM 8.1 mg/dL (8.5-10.1); CREATININE 0.5 mg/dL (0.6-1.0); POTASSIUM 3.6 mmol/L (3.5-5.1)
--- NOTE | 2019-12-29 07:30 | NUR ---
PT FOLLOWING COMMANDS IN LOWER EXTREMIIES. SEDATION TIRATED UP PT WAS COUGHING OVER THE VENT. PT TOLERATING TUBE FEED. RESTRAINTS RENEWED. ADEQUATE URINE OUTPUT. SCANT VAGINAL BLEEDING. CHART CHECK. PLAN FOR CPAP THIS MORNING.
[2019-12-29 08:13] LABS: HCO3 29.3 mmol/L (22.0-26.0); PCO2 48.3 mmHg (35.0-45.0); pH 7.401 (7.360-7.450); sO2 93.4 % (92.0-98.0)
--- NOTE | 2019-12-29 16:49 | NUR ---
Spoke with pt daughter, gave updates on cpap trial, vital signs, medications and plan of care. Pt tolerates RASS -2, able to nod appropriately to yes/no questions. Minimal amount of vaginal bleeding throughout day, blood only visualized on personal care wipe when given stephani care. Heparin gtt restarted per Dr Ayala, no boluses are to be given, discontinued bolus per pharmacy/Jamie. Pt tolerated CPAP trial for 40mins, placed back on CMV due to increased respirations.
[2019-12-30] VITALS (24 sets, daily range): BP systolic 90–145; BP diastolic 52–84
--- NOTE | 2019-12-30 06:00 | NUR ---
REMAINS INTUBATED AND SEDATED WITH PROPOFOL AND FENTANYL GTTS 1000 CC UO THIS SHIFT. SMALL AMT DRAINAGE FROM FMS. REMAINS IN SR. WILL CONT TO MOMITOR.
[2019-12-30 07:06] LABS: ABSOLUTE NEUTROPHILS 10.3 thou/uL (1.4-8.2); BASOPHILS 0.7 % (0.0-2.0); EOSINOPHILS 1.1 % (0.0-3.0); HEMATOCRIT 25.9 % (37.0-47.0); HEMOGLOBIN 8.8 gm/dL (12.0-15.0); LYMPHOCYTES 18.8 % (24.0-44.0); MCH 27.7 pg (26.0-34.0); MCHC 34.1 g/dL (28.0-37.0); MCV 81.2 fL (80.0-100.0); MONOCYTES 9.8 % (1.0-8.0); PLATELET COUNT 159 thou/uL (150-400); POLYS 69.6 % (36.0-66.0); RBC 3.18 mil/uL (4.20-5.00); WBC 14.8 thou/uL (4.0-11.0)
[2019-12-30 07:32] LABS: ALBUMIN 2.2 g/dL (3.4-5.0); CALCIUM 8.4 mg/dL (8.5-10.1); CREATININE 0.6 mg/dL (0.6-1.0); POTASSIUM 3.6 mmol/L (3.5-5.1); TOTAL BILIRUBIN 0.5 mg/dL (0.2-1.0); TOTAL PROTEIN 6.8 g/dL (6.4-8.2)
--- NOTE | 2019-12-30 11:27 | NUR ---
ASSUMED CARE AT 0700, ASSESSMENT AND VITAL SIGNS COMPLETED PER ICU PROTOCOL. DR. TAVERAS ROUNDED THIS AM, PLAN OF CARE DISCUSSED. RN WILL CONTINUE TO MONITOR.
[2019-12-30 15:01] LABS: BE(vivo) 7.9 mmol/L (-2 to +3); HCO3 32.7 mmol/L (22.0-26.0); PCO2 47.5 mmHg (35.0-45.0); PO2 94.1 mmHg (80.0-100.0); pH 7.456 (7.360-7.450); sO2 97.4 % (92.0-98.0)
[2019-12-31] VITALS (23 sets, daily range): BP systolic 105–139; BP diastolic 57–76
[2019-12-31 05:13] LABS: HEMATOCRIT 24.8 % (37.0-47.0); HEMOGLOBIN 8.4 gm/dL (12.0-15.0); MCH 27.6 pg (26.0-34.0); MCHC 33.9 g/dL (28.0-37.0); MCV 81.3 fL (80.0-100.0); RBC 3.06 mil/uL (4.20-5.00); RDW 16.1 % (10.5-14.5); WBC 13.8 thou/uL (4.0-11.0)
[2019-12-31 05:26] LABS: CALCIUM 8.5 mg/dL (8.5-10.1); CREATININE 0.7 mg/dL (0.6-1.0); POTASSIUM 3.8 mmol/L (3.5-5.1)
[2019-12-31 16:08] LABS: pH 7.412 (7.360-7.450); sO2 96.4 % (92.0-98.0)
[2020-01-01] VITALS (24 sets, daily range): BP systolic 98–121; BP diastolic 54–78
--- NOTE | 2020-01-01 04:47 | NUR ---
2230; PT'S SHERINE SANTIAGO FOR A STATUS UPDATE. PT'S VITALS AT THE TIME WAS COMMUNICATED TO HER. SHE WANTED TO KNOW HOW PT TOLERATED THE CPAP TRIAL IN THE DAY. TOLD FAMILY THAT PT LASTED ON CPAP FOR AN HOUR. SEDATION VACATION 2009 TO 2013. PT ON FENTANYL AND PROPOFOL. PT FOLLOWS COMMANDS, MOVES EXREMITIES BUT SHE IS WEAK. GOOD U/0 WITH AVERAGE OF 100ML/HR. INTERDRY APPLID TO SKIN FOLDS. PT IS STABLE, WILL CONTINUE TO CLOSELY MONITOR.
[2020-01-01 06:38] LABS: CALCIUM 8.7 mg/dL (8.5-10.1); CREATININE 0.6 mg/dL (0.6-1.0); POTASSIUM 3.5 mmol/L (3.5-5.1)
--- NOTE | 2020-01-01 13:48 | NUR ---
discussed during los, remains on vent, possible wean trails to start. will cont following as needed for dc needs.
--- NOTE | 2020-01-01 16:57 | NUR ---
PT VENTILATED AND SEDATED. VENT SETTINGS UNCHANGED, NO WEANING OR CPAP TRIAL TODAY. SEDATION IS UNCHANGED. TUBE FEED VIA OG TUBE IS AT GOAL (45ML/HR), RESIDUALS WNL. POLYUREA. FMS IN PLACE WITH SMALL AMOUNT OF LIQUID STOOL. NO VAGINAL BLEEDING NOTED. AFEBRILE. VSS WNL FOR SHIFT. PT NEUROLOGICALLY INTACT. PT AND FAMILY HAVE BEEN UPDATED AND EDUCATED ON POC. WILL CONTINUE TO MONITOR.
[2020-01-02] VITALS (25 sets, daily range): BP systolic 93–130; BP diastolic 53–74
[2020-01-02 04:44] LABS: HEMOGLOBIN 8.2 gm/dL (12.0-15.0); MCH 27.3 pg (26.0-34.0); MCHC 34.1 g/dL (28.0-37.0); RDW 16.1 % (10.5-14.5)
[2020-01-02 05:02] LABS: CALCIUM 8.9 mg/dL (8.5-10.1); CREATININE 0.6 mg/dL (0.6-1.0); POTASSIUM 3.3 mmol/L (3.5-5.1)
--- NOTE | 2020-01-02 09:54 | NUR ---
cm visited with pt daughter arden via phone call, cm checking to see if pt has received her insurance card from her work that was supposed to be effective on 12/27/2019, sterling? " no i have not yet but i will call up to her work today and check to see where it is"/arden daughter. no concerns or question to pass on to bedside nurse. pt remains on vent, will cont following as needed for dc needs.
--- NOTE | 2020-01-02 17:04 | NUR ---
PT INTUBATED AND SEDATED. VENT SETTINGS UNCHANGED. NO CPAP/WEANING TRIAL TODAY. HEPARIN GTT STOPPED DUE TO PLATLET COUNT. HIT ANTIBODY LAB WAS ORDERED AND SENT. TUBE FEED AT GOAL WITH RESIDUALS WNL. FMS IN PLACE WITH SMALL AMOUNT OF DRAINAGE. ADEQUATE UOP. NO VAGINAL BLEEDING NOTED. FAMILY UPDATED AND EDUCATED ON POC. WILL CONTINUE TO MONITOR.
[2020-01-03] VITALS (24 sets, daily range): BP systolic 99–143; BP diastolic 54–85
--- NOTE | 2020-01-03 04:32 | NUR ---
ASSUMMED PT CARE AT THE CHANGE OF SHIFT, PT IS SEDATED, FOLLOW COMMANDS AND CAN ANSWER YES OR NO QUESTIONS BY NODDING, PT IS ON FENTANYL AND PROPOFOL, FECAL MANAGEMENT IN PLACE, BUTLER IN PLACE WITH GOOD OUTPUT, PT CONTINUES TO BE ON VENTILLATOR, 02 SATS AY 100%, VSS, RESTRAINS RENEWED AND IN PLACE, REMAINS AFEBRILE, NO ISSUES, TALKED WITH RT, WILL TRY WEAN OFF IN THE AM, WILL CONTINUE TO MONITOR
--- NOTE | 2020-01-03 07:51 | NUR ---
PT REMAINED AFEBRILE THROUGH THE SHIFT, SR ON THE MONITOR, VSS, REMAINS ON PROPOFOL AND FENTANYL GTT, REFUSED BATH, PASSED REPORT TO DAY NURSE
[2020-01-03 09:15] LABS: BE(vivo) 9.5 mmol/L (-2 to +3); HCO3 33.8 mmol/L (22.0-26.0); PCO2 44.9 mmHg (35.0-45.0); PO2 76.8 mmHg (80.0-100.0); pH 7.494 (7.360-7.450); sO2 96.2 % (92.0-98.0)
--- NOTE | 2020-01-03 09:47 | NUR ---
Will add 1 packet beneprotein in each water flush to meet pts increased protein demands
[2020-01-03 09:52] LABS: ABSOLUTE NEUTROPHILS 8.8 thou/uL (1.4-8.2); EOSINOPHILS 1.1 % (0.0-3.0); HEMATOCRIT 26.4 % (37.0-47.0); MCH 27.2 pg (26.0-34.0); MCHC 33.9 g/dL (28.0-37.0); MCV 80.2 fL (80.0-100.0); PLATELET COUNT 82 thou/uL (150-400); POLYS 77.9 % (36.0-66.0); RDW 16.2 % (10.5-14.5); WBC 11.3 thou/uL (4.0-11.0)
[2020-01-03 10:03] LABS: CALCIUM 8.9 mg/dL (8.5-10.1); CREATININE 0.6 mg/dL (0.6-1.0); POTASSIUM 3.5 mmol/L (3.5-5.1)
--- NOTE | 2020-01-03 19:15 | NUR ---
ASSUMED CARE AT SHIFT CHANGE, SEDATED AND DROWSY, FOLLOWS COMMANDS AND NODDING APPROPRIATLEY TO QUESTIONS. ASSESSMENT DOCUMETED, LOW GRADE FEVER AND MEDICATED INDICATED. KENNEY PATIENT DAUGHTER WAS UPDATED WITH PATIENT CONDITION. Q2 POSITIONED NEEDED FOR COMFORT. AND WILL CONTINUE WITH POC.
[2020-01-04] VITALS (38 sets, daily range): BP systolic 77–171; BP diastolic 41–114
[2020-01-04 05:03] LABS: ABSOLUTE NEUTROPHILS 7.4 thou/uL (1.4-8.2); BASOPHILS 0.6 % (0.0-2.0); EOSINOPHILS 2.3 % (0.0-3.0); HEMATOCRIT 26.6 % (37.0-47.0); HEMOGLOBIN 8.8 gm/dL (12.0-15.0); LYMPHOCYTES 16.9 % (24.0-44.0); MCH 26.7 pg (26.0-34.0); MONOCYTES 9.2 % (1.0-8.0); PLATELET COUNT 85 thou/uL (150-400); RBC 3.29 mil/uL (4.20-5.00); RDW 16.8 % (10.5-14.5); WBC 10.4 thou/uL (4.0-11.0)
[2020-01-04 05:10] LABS: BE(vivo) 7.9 mmol/L (-2 to +3); PCO2 43.1 mmHg (35.0-45.0); PO2 70.6 mmHg (80.0-100.0); pH 7.489 (7.360-7.450); sO2 95.3 % (92.0-98.0)
[2020-01-04 05:23] LABS: ALBUMIN 2.7 g/dL (3.4-5.0); CREATININE 0.6 mg/dL (0.6-1.0); POTASSIUM 3.3 mmol/L (3.5-5.1); TOTAL BILIRUBIN 0.6 mg/dL (0.2-1.0); TOTAL PROTEIN 7.5 g/dL (6.4-8.2)
--- NOTE | 2020-01-04 07:17 | NUR ---
PT MAKING SLOW PROGRESS TOWARDS GOALS. ON VENTILATOR OVERNIGHT NIGHT (CPAP MODE PREVIOUSLY DURING THE DAY). PT TOLERATING THE VENT, OCCASIONAL COUGHING NOTED. MINIMAL AMOUNT OF WHITISH SECRETIONS NOTED WITH SUCTIONING. FOLLOWING COMMANDS. CONTINUE TO MONITOR.
[2020-01-04 08:48] LABS: BE(vivo) 10.3 mmol/L (-2 to +3); HCO3 34.4 mmol/L (22.0-26.0); PCO2 44.5 mmHg (35.0-45.0); PO2 72.6 mmHg (80.0-100.0); pH 7.506 (7.360-7.450); sO2 95.7 % (92.0-98.0)
--- NOTE | 2020-01-04 11:30 | NUR ---
PATIENT ON CPAP THIS AM. ALERT AND ORIENTED NODDING HEAD APPROPIATELY TO QUESTIONS. MONITOR NSR, 70 TO 80'S RESP RATE 20, VSS ABG'S CALLED TO DR YEUNG. ORDERS NOTED.
--- NOTE | 2020-01-04 12:30 | NUR ---
Patient extubated to 35% face shield at 1155. At 1210 O2 dropping to 86%. Stridor noted. Randy RT at bedside fi02 increased to 60% face shield. Dr Lozada notified. Orders noted.
--- NOTE | 2020-01-04 13:21 | NUR ---
Racemic Epi respiratory treatment given and placed on BiPAp 12/6, rate of 10 and 100% FiO2. Solu Medrol and Atovan given per order. Patient remains tachypnic, less responsive after Ativan
[2020-01-04 13:52] LABS: BE(vivo) 4.4 mmol/L (-2 to +3); HCO3 39.6 mmol/L (22.0-26.0); PCO2 160.2 mmHg (35.0-45.0); PO2 247.1 mmHg (80.0-100.0); pH 7.011 (7.360-7.450)
--- NOTE | 2020-01-04 15:15 | NUR ---
PATIENT REINTUBATED AT [address] YEUNG, WITH GLIDOSCOPE. 7.0 ETT INERTED 25 CM AT THE LIP. PROPOFOL RESTARTED FOR SEDATION, OG TUBE REINSERTED AND PORTABLE CXR DONE. PATIENT COUGHING, SUCTIONED. BP DROPPING AND PROPOFOL TAPPERED.
[2020-01-04 15:45] LABS: BE(vivo) 4.5 mmol/L (-2 to +3); PO2 103.2 mmHg (80.0-100.0); pH 7.361 (7.360-7.450); sO2 97.4 % (92.0-98.0)
--- NOTE | 2020-01-04 18:45 | NUR ---
PATIENT NOT PROGESSING SHE IN REINTUBATED. RESTING QUITELY ON THE VENT, NOT COUGHING MUCH. MONITOR NSR, RIDING VENT WITH O2 STAT IN THE UPPER 90'S.
[2020-01-05] VITALS (14 sets, daily range): BP systolic 94–128; BP diastolic 59–71
[2020-01-05 05:49] LABS: HEMATOCRIT 26.1 % (37.0-47.0); HEMOGLOBIN 8.8 gm/dL (12.0-15.0); MCH 26.9 pg (26.0-34.0); MCHC 33.5 g/dL (28.0-37.0); MCV 80.2 fL (80.0-100.0); RBC 3.26 mil/uL (4.20-5.00); RDW 16.6 % (10.5-14.5); WBC 12.9 thou/uL (4.0-11.0)
[2020-01-05 06:06] LABS: CALCIUM 9.1 mg/dL (8.5-10.1); CREATININE 1.3 mg/dL (0.6-1.0); POTASSIUM 3.9 mmol/L (3.5-5.1)
--- NOTE | 2020-01-05 12:15 | NUR ---
RN JUST NOTIFIED KENNEY, DAUGHTER CALLED X 2 TO INQUIRE REGARDING PT STATUS. RN IMMEDIATELY CALLED KENNEY, APOLOGIZED FOR THE DELAYED RESPONSE. UPDATED HER ON HER MOTHER'S STATUS INCLUDING SEDATED WHILE ON VENT, ABLE TO WEAKLY FOLLOW COMMANDS WITH ALL EXTREMITIES. TOLERATING VENT AND ALLOWING HER LUNGS TO REST TODAY. ALL QUESTIONS ANSWERED TO SATISFACTION.
--- NOTE | 2020-01-05 15:30 | NUR ---
No anticipated weekend discharge. Patient extubated for short time and now reintubated. 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 [facility] following or dc planning. No health insurance noted at this time. [employer] referral in process.
[2020-01-06] VITALS (16 sets, daily range): BP systolic 97–139; BP diastolic 60–80
[2020-01-06 05:29] LABS: BE(vivo) 5.1 mmol/L (-2 to +3); HCO3 29.6 mmol/L (22.0-26.0); PO2 62.6 mmHg (80.0-100.0); pH 7.455 (7.360-7.450); sO2 92.9 % (92.0-98.0)
[2020-01-06 05:29] LABS: ABSOLUTE NEUTROPHILS 10.3 thou/uL (1.4-8.2); BASOPHILS 0.3 % (0.0-2.0); HEMATOCRIT 27.2 % (37.0-47.0); HEMOGLOBIN 8.9 gm/dL (12.0-15.0); LYMPHOCYTES 11.4 % (24.0-44.0); MCH 26.2 pg (26.0-34.0); MCHC 32.8 g/dL (28.0-37.0); MCV 79.9 fL (80.0-100.0); MONOCYTES 8.3 % (1.0-8.0); PLATELET COUNT 142 thou/uL (150-400); RBC 3.41 mil/uL (4.20-5.00); WBC 12.9 thou/uL (4.0-11.0)
[2020-01-06 05:48] LABS: ALBUMIN 2.9 g/dL (3.4-5.0); CALCIUM 9.3 mg/dL (8.5-10.1); CREATININE 1.2 mg/dL (0.6-1.0); POTASSIUM 3.4 mmol/L (3.5-5.1); TOTAL BILIRUBIN 0.8 mg/dL (0.2-1.0); TOTAL PROTEIN 7.9 g/dL (6.4-8.2)
--- NOTE | 2020-01-06 15:23 | NUR ---
RN RETURNED CALL TO MYRIAM NOGUEIRA, DAUGHTER TO UPDATE ON PT STATUS. INFORMED OF CHANGE IN SEDATION AND PT TOLERATING. TOLERATING VENT, ALLOWING PT TO REST. ARGATROBAN TO TREAT LOW PLATELETS ASSOCIATED WITH HEPARIN INDUCED THROMBOCYTOPENIA, PT RESPONDING WITH LAB IMPROVEMENT. DISCUSSED PLAN FOR TRACH/PEG. VERBALIZED UNDERSTANDING. SHE STATED THAT SHE IS IN AGREEMENT FOR FOLLOW THRU WITH TRACH.
[2020-01-07] VITALS (23 sets, daily range): BP systolic 98–138; BP diastolic 52–87
[2020-01-07 06:15] LABS: ABSOLUTE NEUTROPHILS 9.8 thou/uL (1.4-8.2); BASOPHILS 0.2 % (0.0-2.0); HEMATOCRIT 26.8 % (37.0-47.0); HEMOGLOBIN 8.9 gm/dL (12.0-15.0); LYMPHOCYTES 13.7 % (24.0-44.0); MCH 26.8 pg (26.0-34.0); MCHC 33.4 g/dL (28.0-37.0); MCV 80.2 fL (80.0-100.0); MONOCYTES 7.8 % (1.0-8.0); PLATELET COUNT 161 thou/uL (150-400); POLYS 78.3 % (36.0-66.0); RBC 3.34 mil/uL (4.20-5.00); RDW 16.8 % (10.5-14.5); WBC 12.6 thou/uL (4.0-11.0)
[2020-01-07 06:17] LABS: INR 1.3; PROTIME 13.8 Seconds (9.3-11.4)
[2020-01-07 06:35] LABS: ALBUMIN 2.9 g/dL (3.4-5.0); CALCIUM 9.4 mg/dL (8.5-10.1); CREATININE 1.1 mg/dL (0.6-1.0); MAGNESIUM 2.5 mg/dL (1.8-2.4); PHOSPHORUS 3.6 mg/dL (2.5-4.9); POTASSIUM 3.9 mmol/L (3.5-5.1); TOTAL BILIRUBIN 0.8 mg/dL (0.2-1.0); TOTAL PROTEIN 7.9 g/dL (6.4-8.2)
--- NOTE | 2020-01-07 07:28 | NUR ---
Assessments and interventions charted. Patient alert and awake. Makes needs know by hand gestures. No complaints of pain. No adverse events throughout the night. Patient is progressing toward goals.
[2020-01-08] VITALS (30 sets, daily range): BP systolic 75–134; BP diastolic 52–83
[2020-01-08 04:50] LABS: BE(vivo) 4.2 mmol/L (-2 to +3); HCO3 27.9 mmol/L (22.0-26.0); PCO2 38.6 mmHg (35.0-45.0); PO2 75.6 mmHg (80.0-100.0); pH 7.477 (7.360-7.450)
--- NOTE | 2020-01-08 06:00 | NUR ---
REMAINS INTUBATED AND SEDATED WITH VERSED AND FENTANYL. FOLLOWS COMMANDS REMAINS ON ARGATROBAN GTT AT 1.1 MCG OR 7.3 CC/HR LAST APTT 46 IS THERAPUTIC. WILL REPEAT APTT 1030 TODAY. 700 CC UO THIS SHIFT. BATHED SINUS SHABBIR TO SINUS RHYTHM. WILL CONT TO MONITOR.
[2020-01-08 06:36] LABS: HEMATOCRIT 26.1 % (37.0-47.0); HEMOGLOBIN 8.8 gm/dL (12.0-15.0); MCH 27.1 pg (26.0-34.0); MCHC 33.9 g/dL (28.0-37.0); PLATELET COUNT 178 thou/uL (150-400); RBC 3.26 mil/uL (4.20-5.00); RDW 16.7 % (10.5-14.5); WBC 12.3 thou/uL (4.0-11.0)
[2020-01-08 07:04] LABS: ALBUMIN 2.8 g/dL (3.4-5.0); CALCIUM 9.4 mg/dL (8.5-10.1); POTASSIUM 3.9 mmol/L (3.5-5.1); TOTAL BILIRUBIN 0.5 mg/dL (0.2-1.0); TOTAL PROTEIN 7.5 g/dL (6.4-8.2)
[2020-01-08 08:29] LABS: ABSOLUTE NEUTROPHILS 8.5 thou/uL (1.4-8.2); ANISOCYTOSIS 1+; HYPOCHROMASIA 1+; METAMYELOCYTES 1 %; NUCLEATED RBCS 1 /100WBC; POIKILOCYTOSIS SLIGHT
[2020-01-08 08:30] LABS: POLYCHROMASIA SLIGHT
--- NOTE | 2020-01-08 08:37 | NUR ---
If pt remains off propofol, needs a new tube feed goal rate of 60ml/hr and can discontinue adding beneprotein to flushes
--- NOTE | 2020-01-08 08:54 | NUR ---
ON THE VENT LIGHTLY SEDATED WITH VERSED AND FENTANYL FOR PAIN MANAGEMENT. PATIENT AWAKENS EASILY AND FOLLOWS COMMANDS AND NODS APPROPRIATELY TO Y/N QNS AND DENIES PAIN OR ANY CONCERNS AT THIS TIME. TOLERATING TUBEFEEDING WITH MINIMAL RESIDUALS. BUTLER AND FMS NOTED. WILL CONTINUE WITH POC.
--- NOTE | 2020-01-08 09:10 | NUR ---
tube feeds continue
--- NOTE | 2020-01-08 14:00 | NUR ---
DAUGHTER CALLED EARLIER AND WAS UPDATED BY RN.
--- NOTE | 2020-01-08 14:11 | NUR ---
pt remains on vent, possible trach and peg. cm visited with daughter arden via phone call, no concerns or question voiced during phone call. " thank you for checking in with us"/kaykay her. will cont following as needed for dc needs.
[2020-01-09] VITALS (23 sets, daily range): BP systolic 106–143; BP diastolic 60–86
--- NOTE | 2020-01-09 04:58 | NUR ---
Pt is alert, is following commands and trying to communicate by writing, she denies any discomfort, and restraints are loosely tied, she has made no movements to pull at any lines, etc. This internal communications writer explained that the HOB is elevated, (when she motioned to lower it), for her tube feeding, but since the bottle was empty, the TF stayed off and the HOB was lowered briefly. Monitor reads SB/SR, BP's have been WNL, + pulses, minimal pedal edema. LCTA, sats are 95% and above, and a small amount of blood tinged sputum with suctioning. Abd is soft/rounded, fecal management system in place, draining light brown stool. TF has been well tolerated, minimal residuals noted. Urine output has been about 75 ml/hr. The bed is in the low/locked position, the siderails are up x 4 and she is closely monitored for her safety, she is slowly progressing towards her POC goals.
[2020-01-09 05:49] LABS: HEMATOCRIT 29.7 % (37.0-47.0); HEMOGLOBIN 9.8 gm/dL (12.0-15.0); MCH 26.5 pg (26.0-34.0); MCHC 32.9 g/dL (28.0-37.0); MCV 80.3 fL (80.0-100.0); RBC 3.7 mil/uL (4.20-5.00); RDW 17.2 % (10.5-14.5); WBC 14.8 thou/uL (4.0-11.0)
[2020-01-09 06:21] LABS: CALCIUM 9.4 mg/dL (8.5-10.1); CREATININE 0.9 mg/dL (0.6-1.0); POTASSIUM 4.2 mmol/L (3.5-5.1)
[2020-01-09 10:24] LABS: INR 1.5; PROTIME 15.1 Seconds (9.3-11.4)
--- NOTE | 2020-01-09 17:09 | NUR ---
PT CARE ASSUMED APPROX 0700. ASSESSMENTS CHARTED. PT DENIES PAIN AND SOA. VSS. TURNING Q2 HRS AND PRN. PT FOLLOWING COMMANDS AND USING COMMUNICATION BOARD APPROPRIATELY. AWAKE AT TIMES BUT MAKING NO ATTEMPTS TO INTERFERE WITH MEDICAL DEVICES. PT REPORTS BEING COMFORTABLE. PT TOLERATING POC. CLINICAL UPDATE GIVEN TO PT'S DAUGHTERS AND TO PT. ALL DENY QUESTIONS OR CONCERNS REGARDING POC. NO DISTRESS NOTED.
[2020-01-10] VITALS (24 sets, daily range): BP systolic 97–133; BP diastolic 56–83
[2020-01-10 06:05] LABS: CALCIUM 9.1 mg/dL (8.5-10.1); CREATININE 0.9 mg/dL (0.6-1.0); POTASSIUM 4.4 mmol/L (3.5-5.1)
--- NOTE | 2020-01-10 08:40 | NUR ---
Pt assessments as charted, brent with drk yellow output, pt arlert and follows commands and points to where she wants attention, right upper pic with gtts infusing, and labs drawn, repositioned as needed, encouraged pt to assist, extremities elevated up on pillows, reort given to next shift.
[2020-01-10 08:52] LABS: HEMATOCRIT 28.8 % (37.0-47.0); HEMOGLOBIN 9.5 gm/dL (12.0-15.0); MCH 26.9 pg (26.0-34.0); MCV 81.6 fL (80.0-100.0); RBC 3.54 mil/uL (4.20-5.00); WBC 12.8 thou/uL (4.0-11.0)
--- NOTE | 2020-01-10 18:38 | NUR ---
ASSUMED CARE @ 0700 01/10/20, PT ASSESSMENTS AND VSS COMPLETE PER ICU PROTOCOL. PT ON FENTANYL @ VERSED FOR VENT MANAGEMENT, PT CALM AND ALERT ON THESE DRIPS, ABLE TO FOLLOW COMMANDS BUT STILL REACHES FOR HER TUBE TIME TO TIME, RESTRAINTS IN PLACE TO PREVENT SELF-EXTUBATION. DR STREET HERE THIS AM TO ROUND, NO NEW ORDERS PLACED BUT RN TOLD TO ANTICIPATE FOR TRACH AND PEG 01/11/20 AFTER HE SPEAKS WITH DR DOMINIQUE. DR DEL RIO AND DR ERVIN HERE THIS AM O ROUND, NO NEW ORDERS PLACED AT THAT TIME. FAMILY CALLED TO REQUEST UPDATE, CODE VERIFIED UPDATE PROVIDED. WILL CONT TO MONITOR.
[2020-01-11] VITALS (43 sets, daily range): BP systolic 96–141; BP diastolic 49–85
--- NOTE | 2020-01-11 07:35 | NUR ---
ASSUMED CARE AT 0. PT AWAKE DESPITE SEDATION, RESPONDS TO COMMANDS; ABLE TO COMMUNICATE BEING IN PAIN IN HER ABD, RATED HER PAIN OUT OF 10 AN 8. FMS WAS COMPLETELY FULL OF AIR AND THERE WAS 150 ML RESIDUAL FROM OG TUBE; DEFLATED AIR AND DISCARDED RESIDUAL, INCREASED FENTANYL FROM 75 TO 100. BY MIDNIGHT, PT REPORTED NO PAIN. DARK GOLD URINE FROM BUTLER. 01/09 COVID SWAB RESULTED POSITIVE, NOTIFIED [facility] HOME ADVISOR OVERNIGHT. IV ANTI-COAG HELD AT [address] PADILLA'S ORDER. TUBE FEEDING ON HOLD SINCE 2029 D/T PT COMPLAINING OF ABD PAIN WITH NAUSEA; LAST WATER FLUSH GIVEN A MIDNIGHT. HR IN AM WAS IN 50'S, REDUCED FENTANYL DRIP BACK TO 75. PICC LINE VERY POSITIONAL OVERNIGHT, WITH BOTH LINES ALTERNATINGLY DIFFICULT TO FLUSH OR DRAW BACK FROM AND THEN LATER BEING EASILY DRAWN/FLUSHED. NO OTHER CONCERNS.
[2020-01-11 08:08] LABS: CALCIUM 9.4 mg/dL (8.5-10.1); CREATININE 0.9 mg/dL (0.6-1.0); POTASSIUM 4.3 mmol/L (3.5-5.1)
--- NOTE | 2020-01-11 08:39 | NUR ---
New TF goal once started after PEG is vital high protein at 60ml/hr
--- NOTE | 2020-01-11 11:45 | NUR ---
BACK FROM OR, FENTANYL AND VERSED TITRATED UP FOR COMFORT. SMALL AMT OF BLEEDING AOURND TRACH. VSS.
[2020-01-12] VITALS (35 sets, daily range): BP systolic 95–125; BP diastolic 50–76
--- NOTE | 2020-01-12 03:41 | NUR ---
ASSESSMENT; PT REMAIN ALERT AND ORIENT TIMES THREE. DENIES PAIN. PEG TUBE INTACT, NO OOZING NOTED. TF BEGAN AT 10ML/HR AND INCREASED TOWARDS GOAL OF 45ML/HR. BUTLER PATENT WITH YELLOW UO WITH SEDIMENT. SR PER MONITOR. VENT SETTINGS: TV 500, FIO2 30, PEEP 6, AND RATE 18. PT TOLERATING VENT PER TRACH WITH SATS 95-97%. PT MOUTHS WORDS APPROPRIATELY. FECAL MANAGEMENT SYSTEM WITH YISEL AMTS OF LIQUID BROWNISH STOOL NOTED. RIGHT UA PICC PATENT WITH [place] SLUGGISH. PER DR. KHOURY, CONTINUE TO HOLD ARGATROBAN AT THIS TIME UNTIL DR. STREET MAKE ROUNDS ON THIS PT IN THE AM. COVID POSITIVE PRECAUTIONS CONTINUES. SLOW PROGRESS TOWARDS DC GOALS. WILL CONTINUE TO MONITOR.
[2020-01-12 08:07] LABS: HEMOGLOBIN 10.3 gm/dL (12.0-15.0); MCHC 33.3 g/dL (28.0-37.0); MCV 81.1 fL (80.0-100.0); RBC 3.83 mil/uL (4.20-5.00); RDW 18.1 % (10.5-14.5); WBC 15.2 thou/uL (4.0-11.0)
[2020-01-12 08:15] LABS: CALCIUM 9.2 mg/dL (8.5-10.1)
--- NOTE | 2020-01-12 10:54 | NUR ---
chart review. pt got trach and peg yesterday. covid +. cm visited with daughter arden via phone call, education on [facility], no active insurance " yes i told you it was active on december 26 and i been talking with her work. i have information at home and will call you back when get home. thank you"/kaykay her. no anticipated dc over weekend, will cont following as needed for dc needs.
--- NOTE | 2020-01-12 16:01 | EKG ---
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
--- NOTE | 2020-01-12 18:39 | NUR ---
ASSESSMENTS AND INTERVENTIONS DOCCUMETNED. DAUGHTER CALLING THIS AM TO ASK ABOUT STATUS OF MOTHER. DAUGTHER UPDATED AND EDUCATED ABOUT POC. PATIENT COMMNUNICATING BY MOUTHING WORDS. RN ABLE TO UNDERSTAND PATIENT AND MEET NEEDS. PATIENT RESUMED ON BLOOD THINNERS SEE EMAR. PATIENT STARTED ON COUMADIN. DAILY INRS ORDERED. AT THIS TIME PATIENT IS PROGRESSING TOWARDS GOALS. PATIENT IS ALERT AND PARTICIPATING IN CARE.
[2020-01-13] VITALS (43 sets, daily range): BP systolic 100–132; BP diastolic 57–80
[2020-01-13 05:53] LABS: INR 1.6; PROTIME 16.6 Seconds (9.3-11.4)
--- NOTE | 2020-01-13 12:41 | NUR ---
ASSUMED CARE AT 0700, ASSESSMENT AND VITAL SIGNS COMPLETED PER ICU PROTOCOL. PT'S DAUGHTER CALLED TO RN TO GET AN UPDATE, SECURITY CODE VERIFIED. FAMILY VOICES NO FURTHER QUESTIONS OR CONCERNS AT THIS TIME. DR. DAVIS ROUNDED, WANTED UPDATE FOR LT[facility] D/C. QUYEN'S NOTE WITH CM READ AND PROVIDED. PLAN OF CARE DISCUSSED WITH DR. DAVIS, RN WILL CONTINUE TO MONITOR.
[2020-01-13 13:26] LABS: HCO3 23.6 mmol/L (22.0-26.0); PO2 93.5 mmHg (80.0-100.0); sO2 97.8 % (92.0-98.0)
[2020-01-14] VITALS (39 sets, daily range): BP systolic 111–131; BP diastolic 65–81
[2020-01-14 05:47] LABS: INR 1.5; PROTIME 15.9 Seconds (9.3-11.4)
--- NOTE | 2020-01-14 19:00 | NUR ---
Pt alert throughout the shift. Pt able to convey her needs with mouthing words or writing notes. Headache relieved with Tylenol. Pt tolerated CPAP throughout the shift without distress. Tolerating tube feeding. Maintained in Isolation with COVID precautions. Argatroban infusing per protocol-Aptt was therapeutic-see flow sheet. No calls received from family today. Report given to RN assuming care.
[2020-01-15] VITALS (22 sets, daily range): BP systolic 106–131; BP diastolic 67–78
[2020-01-15 05:39] LABS: INR 1.6; PROTIME 16.6 Seconds (9.3-11.4)
--- NOTE | 2020-01-15 09:27 | NUR ---
cm visited with daughter arden via phone call rt carolyn huynh and [facility]. " can send referral to [facility] and i will get updates from nurse on how mom did last night around noon today."/arden. referral to be sent.
--- NOTE | 2020-01-15 16:51 | NUR ---
FAXED CLINICAL UPDATE AND VENT SETTINGS TO [facility] RECEIVED CONFIRMATION.
[2020-01-16] VITALS (35 sets, daily range): BP systolic 108–131; BP diastolic 60–82
[2020-01-16 04:46] LABS: PROTIME 83.4 Seconds (9.3-11.4)
[2020-01-16 04:51] LABS: INR 8.1
[2020-01-16 05:17] LABS: HEMATOCRIT 31.3 % (37.0-47.0); HEMOGLOBIN 10.2 gm/dL (12.0-15.0); MCH 26.5 pg (26.0-34.0); MCHC 32.6 g/dL (28.0-37.0); MCV 81.3 fL (80.0-100.0); RBC 3.84 mil/uL (4.20-5.00); RDW 18.5 % (10.5-14.5); WBC 16.5 thou/uL (4.0-11.0)
[2020-01-16 06:30] LABS: INR 1.8
--- NOTE | 2020-01-16 09:23 | NUR ---
Pt tube feed has new recommended goal of 60ml/hr.
--- NOTE | 2020-01-16 10:10 | NUR ---
cm left message for [facility] liaison covering for flak[place] with [facility]. cm faxed updates from today.
--- NOTE | 2020-01-16 13:32 | NUR ---
PT BECOME UPSET AND ANGRY THIS AFTERNOON. PT WROTE ON HER BOARD THAT SHE WANTS TO CHECK HERSELF OUT OF HOSPITAL AND GO HOME. I HAVE INFORMED HER THAT THIS IS IMNPOSSIBLE AT THIS IMNE SHE IS COVID POSITIVE, TRACHED AND BREATHING ON A VENTILATOR, SHE HAS A PEG TUBE PLACED FOR FEEDINGS AND SHE NEEDS TO GOTO A LT[facility] TO RECOVER. INFORM DR. BENDER AND INSTRUCTED TO GIVE ATIVAN PRN. CONTACT PT'S DAUGHTER ASHLET TO GIVE UPDATE CONDITION. PT REFUSING TURNS AND BATH TODAY. WILL CONTINUE TO ASSESS.
--- NOTE | 2020-01-16 13:38 | NUR ---
GARY NOTIFIED THAT [facility] HAD APPROVAL AND AUTH TO ADMIT PT THIS DAY. CM NOTIFIED CARE TEAM TO COMPLETE ORDERS. CHART COPY MADE. FD FORM COMPLETED. [facility] WOULD LIKE [facility] TRANSPORT ARRANGED FOR A 8:OOPM ACID ADJUSTER. GARY NOTIFIED PT'S DTR KENNEY OR TIME OF DC. SHE IS AWARE AND AGREEABLE. REPORT TO BE CALLED TO .
--- NOTE | 2020-01-16 15:29 | NUR ---
REPORT CALLED TO ZIGGY ASIF AT [facility].
[2020-01-16] MEDS ORDERED: XANAX 0.5 MG0.5 M1 PER TUBE (16:21)
[2020-01-16] MEDS ORDERED: CLARITIN10 MG PER TUBE (16:24)
[2020-01-16] MEDS ORDERED: COUMADIN 5 MG TA5 M1 PO (16:24)
[2020-01-16] MEDS ORDERED: IPRAT-ALBUT 0.5-3 ML INH (16:24)
[2020-01-16] MEDS ORDERED: ROBITUSSIN100 MG/53 PER TUBE (16:24)
[2020-01-16] MEDS ORDERED: PEPCID20 MG PO (16:24)
[2020-01-16] MEDS ORDERED: SENNA-TIME S T1 EACH PER TUBE (16:24)
[2020-01-16] MEDS ORDERED: LASIX 40 MG TAB40 MG PER TUBE (16:24)
[2020-01-16] MEDS ORDERED: PREDNISONE 10 M10 M1 PER TUBE (16:35)
--- NOTE | 2020-01-16 18:22 | NUR ---
P TOLERATED CPAP ALL DAY, ABLE TO COMMUNICATE VIA WHITE BOARD. PT PROGRESSING TOWARDS GOALS AND WILL TRANSFER TO [facility] AT 8PM [facility].
--- NOTE | 2020-01-16 19:27 | NUR ---
REPORT GIVEN TO ELSA GARDINER.
--- NOTE | 2020-01-16 20:20 | NUR ---
ASSUMED PT CARE AT 1900. VSS. PT ON VENT WITH CPAP SETTINS. PT A&OX4. SHE WAS A LITTLE ANXIOUS BUT PT COMUNICATED WRITING ON THE WHITE BOARD STATING THAT SHE IS EXCITED TO BE D/C. TUBE FEEDING CLAMPED, NEW FMS BAG APPLIED AND BUTLER EMPTIED. [facility] ARRIVED AT [address] PT [address] [facility]. ALL PT BELONGINGS PACKED AND SENT WITH PT. PT ON AGATROB GTT AT 1.2MCG/KG/MIN WHICH IS ALSO 7.93MLS/HR. WHEELED OUT OF THE UNIT BY [facility] AT 2018.
== END 2020-01-16 20:18 | DRG 4 ==
LOC: ER 19:10 → ICU 21:04 → EROBS 21:04 → ICU 22:29
PROVIDERS: Emergency Medicine; Hospitalist; Internal Medicine; Internal Medicine Gastroenterology; Internal Medicine Pulmonary Disease; Nurse Practitioner Family; Pediatrics; Specialist; ADMIT Hospitalist; ATTEND Hospitalist
PROC: 02HV33Z Insertion of Infusion Device into Superior Vena Cava, Percutaneous Approach (ICD-10-PCS; 2019-12-19)
PROC: 0BH18EZ Insertion of Endotracheal Airway into Trachea, Via Natural or Artificial Opening Endoscopic (ICD-10-PCS; principal; 2019-12-21)
PROC: 5A1955Z Respiratory Ventilation, Greater than 96 Consecutive Hours (ICD-10-PCS; principal; 2019-12-21)
PROC: 30233M1 Transfusion of Nonautologous Plasma Cryoprecipitate into Peripheral Vein, Percutaneous Approach (ICD-10-PCS; 2019-12-21)
PROC: 0B110F4 Bypass Trachea to Cutaneous with Tracheostomy Device, Open Approach (ICD-10-PCS; 2020-01-11)
DX: A41.9 Sepsis, unspecified organism (principal); J96.01 Acute respiratory failure with hypoxia; U07.1 COVID-19; J12.89 Other viral pneumonia; R65.21 Severe sepsis with septic shock; N17.0 Acute kidney failure with tubular necrosis; K92.2 Gastrointestinal hemorrhage, unspecified; I82.B11 Acute embolism and thrombosis of right subclavian vein; I82.C13 Acute embolism and thrombosis of internal jugular vein, bilateral; R07.9 Chest pain, unspecified; E66.01 Morbid (severe) obesity due to excess calories; R79.89 Other specified abnormal findings of blood chemistry; E78.5 Hyperlipidemia, unspecified; I65.21 Occlusion and stenosis of right carotid artery; K76.0 Fatty (change of) liver, not elsewhere classified; C54.1 Malignant neoplasm of endometrium; N93.9 Abnormal uterine and vaginal bleeding, unspecified; I11.0 Hypertensive heart disease with heart failure; I50.9 Heart failure, unspecified; D75.82 Heparin induced thrombocytopenia (HIT); R13.10 Dysphagia, unspecified; F41.9 Anxiety disorder, unspecified; Z68.38 Body mass index [BMI] 38.0-38.9, adult; Z79.899 Other long term (current) drug therapy
CPT/HCPCS: 10078; 10203; 27000; 50101; 50386; 50403; 56525; 62110; 62900